=== PATIENT | female | born 1980 | race Hispanic/Latino ===

== ENCOUNTER 2017-07-15 13:03 | Emergency (ER) | payer OTHER | END 2017-07-15 13:43 | disposition left against medical advice (07) | LOC: SCSER 13:03 | DX: Z53.21 Procedure and treatment not carried out due to patient leaving prior to being seen by health care provider (principal) ==

== ENCOUNTER 2018-10-26 14:23 | Emergency (ER) | payer OTHER, SELFPAY ==
[2018-10-26 15:21] LABS: #Basophils 0.1 thou/uL (0.0-0.2); #Eosinphils 0.2 thou/uL (0.0-0.7); #Lymphocytes 1.7 thou/uL (1.20-3.40); #Monocytes 0.5 thou/uL (0.11-0.59); #Neutrophils 5.7 thou/uL (1.40-6.50); %Basophils 1.3 % (0.0-1.0); %Eosinophils 2.7 % (0.0-10.0); %Lymphocytes 20.2 % (21.0-51.0); %Monocytes 6.3 % (0.0-10.0); %Neutrophils 69.6 % (42.0-75.0); Hemoglobin 14.6 g/dL (12.0-16.0); Mean Corpuscular HGB CONC 33.4 g/dL (32.0-36.0); Mean Platelet Volume 6.9 fL (7.4-10.4); Platelet Count 243 thou/uL (130-400); RBC Distribution Width 12.3 % (11.5-14.5); Red Blood Cell (RBC) Count 4.71 mill/uL (4.20-5.40); White Blood Cell (WBC) Count 8.2 thou/uL (4.8-10.8)
[2018-10-26] MEDS ORDERED: Lorazepam 2 MG/ML VIAL ONE (15:27)
[2018-10-26] MEDS ORDERED: Ondansetron PF 4 MG/2 ML Vial ONE (15:27)
[2018-10-26] MEDS ORDERED: Meclizine HCl 25 MG TAB ONE (15:27)
[2018-10-26] MEDS ORDERED: Dexamethasone 10 MG/ML VIAL ONE (15:27)
[2018-10-26 15:32] LABS: BHCG - Serum Negative (NEGATIVE); Pregs Control Background? CLEAR/WHITE (CLR/WHITE); Pregs Control Bar Appear? YES (CONTROL BAR)
[2018-10-26 15:41] LABS: ALT (SGPT) 19 U/L (8-55); AST (SGOT) 17 U/L (5-34); Albumin 3.9 g/dL (3.5-5.0); Alkaline Phosphatase 87 U/L (40-150); Anion Gap 14 mmol/L (10-20); BUN (Urea Nitrogen) 12 mg/dL (7.0-18.7); Bilirubin, Total Less than 0.2 mg/dL (0.2-1.2); Calc. Creatinine Clearance 0 mL/min (70-130); Calcium 9.2 mg/dL (7.8-10.44); Carbon Dioxide 24 mmol/L (22-29); Chloride 107 mmol/L (98-107); Estimated GFR-MDRD 87; Glucose 83 mg/dL (70-105); Protein, Total 6.9 g/dL (6.0-8.3); Sodium 141 mmol/L (136-145)
== END 2018-10-26 17:21 | disposition home or self-care (01) ==
LOC: ERS 14:23
DX: R42 Dizziness and giddiness (principal); H55.00 Unspecified nystagmus; F90.9 Attention-deficit hyperactivity disorder, unspecified type; F41.9 Anxiety disorder, unspecified; Z79.899 Other long term (current) drug therapy
CPT/HCPCS: 36416; 80053; 84703; 85025; 93005; 96372; 96374; 96375; J1100; J2060; J2405

== ENCOUNTER 2019-07-06 08:02 | Emergency (ER) | payer SELFPAY | END 2019-07-06 10:08 | disposition left against medical advice (07) | LOC: ERS 08:02 | DX: Z53.21 Procedure and treatment not carried out due to patient leaving prior to being seen by health care provider (principal) ==

== ENCOUNTER 2019-07-08 20:59 | Emergency (ER) | payer SELFPAY ==
[2019-07-08] MEDS ORDERED: Ibuprofen 800 MG TAB ONE (22:21)
[2019-07-08] MEDS ORDERED: Cyclobenzaprine 10 MG TAB ONE (22:21)
--- NOTE | 2019-07-08 22:38 | RAD ---
Radiograph right shoulder 3 views: HISTORY: Right shoulder pain after lifting weights FINDINGS: No major pathology of glenohumeral joint identified. Tiny subchondral cysts at inferior aspect of the AC joint without large osteophytes. No fracture, dislocation, or subluxation. IMPRESSION: No major pathology
== END 2019-07-08 22:30 | disposition home or self-care (01) ==
LOC: SCSER 20:59
DX: S46.911A Strain of unspecified muscle, fascia and tendon at shoulder and upper arm level, right arm, initial encounter (principal); F17.210 Nicotine dependence, cigarettes, uncomplicated; X50.0XXA Overexertion from strenuous movement or load, initial encounter

== ENCOUNTER 2020-08-11 11:12 | Emergency (ER) | payer MEDICAID ==
[2020-08-11] MEDS ORDERED: Ketorolac Tromethamine 30 MG/ML VIAL ONE (11:38)
[2020-08-11] MEDS ORDERED: Ondansetron ODT 4 MG TAB ONE (11:38)
--- NOTE | 2020-08-11 13:08 | RAD ---
RADIOGRAPH RIGHT KNEE 4VIEWS: DATE: 08/11/2020 HISTORY: 39-year-old female with right knee pain FINDINGS: There is no evidence of fracture or dislocation. There is no evidence of periostitis, permeative lesi on, osteolytic lesion, or osteoblastic lesion. The joint spaces are maintained without erosions or significant osteophytes. No joint effusion is identified. IMPRESSION: Normal
== END 2020-08-11 13:50 | disposition home or self-care (01) ==
LOC: ERS 11:12
DX: S83.91XA Sprain of unspecified site of right knee, initial encounter (principal); F17.210 Nicotine dependence, cigarettes, uncomplicated; X50.0XXA Overexertion from strenuous movement or load, initial encounter
CPT/HCPCS: 96372; J1885; Q0162

== ENCOUNTER 2024-03-23 12:05 | Emergency (ER) | payer MEDICAID, SELFPAY ==
[2024-03-23] MEDS ORDERED: Ketorolac Tromethamine 30 MG (1 mL) VIAL ONE (13:16)
== END 2024-03-23 13:30 | disposition home or self-care (01) ==
LOC: ERS 12:05
DX: K08.89 Other specified disorders of teeth and supporting structures (principal)
CPT/HCPCS: 96372; 99282; J1885